=== PATIENT | female | born 2000 | race Caucasian/White ===

== ENCOUNTER 2020-12-17 04:30 | Inpatient (IN) ==
[2020-12-17] MEDS ORDERED: Lidocaine 1% 20 ML MDV ONE (04:42)
[2020-12-17] MEDS ORDERED: *HR* HYDROmorphone (PF) 1 MG/ML SYRINGE IVP ONE (04:52)
[2020-12-17] MEDS ORDERED: *HR* HYDROmorphone (PF) 1 MG/ML SYRINGE ONE (04:56)
[2020-12-17] MEDS ORDERED: Ondansetron 4 MG/2 ML VIAL IVP PRN (07:06)
[2020-12-17] MEDS ORDERED: Metoclopramide 10 MG/2 ML VIAL IVP PRN (07:06)
[2020-12-17] MEDS ORDERED: Naloxone 0.4 MG/ML INJ IVP PRN (07:06)
[2020-12-17] MEDS ORDERED: Lidocaine 1% 20 ML MDV INFILT PRN (07:06)
[2020-12-17] MEDS ORDERED: Famotidine 20 MG/2 ML VIAL IVP PRN (07:06)
[2020-12-17] MEDS ORDERED: Oxytocin 20 units/ LR 1000 mL 20 UNIT/1,000 ML BAG IVC SCH (07:07)
[2020-12-17] MEDS ORDERED: Measles/Mumps/Rubella Vacc 0.5 ML VIAL SQ PRN (07:07)
[2020-12-17] MEDS ORDERED: Benzocaine/Menthol 56 GM AEROSOL SPRAY TP PRN (07:07)
[2020-12-17] MEDS ORDERED: Sennosides 8.6 MG TABLET PO PRN (07:07)
[2020-12-17] MEDS ORDERED: Ringers Solution, Lactated 1,000 ML IVC SCH (07:15)
[2020-12-17 07:30] LABS: Basophils % 0.2 %; Eosinophils % 0.1 %; Hemoglobin 11.7 g/dL (11.5-15.4); Immature Granulocytes % 0.9 % (0-4); Lymphocytes # 1.7 K/mcL (0.6-4.6); Lymphocytes % 8.7 %; Mean Corpuscular HGB Conc 33.4 g/dL (31.6-35.5); Mean Corpuscular Hemoglobin 32.3 pg (28.0-33.3); Mean Corpuscular Volume 96.7 fL (83.0-100.0); Mean Platelet Volume 10.6 fL (9.4-12.4); Monocytes % 5.3 %; Neutrophils # 16.5 K/mcL (1.6-8.9); Platelet Count 437 K/mcL (140-400); Red Blood Count 3.62 M/mcL (3.82-4.97); Red Cell Distribution Width 12.1 % (11.5-14.5); Segmented Neutrophils % 84.8 %; White Blood Count 19.5 K/mcL (4.3-11.1)
[2020-12-17] MEDS: Prenatal Vit/FA 1 EACH TABLET PO SCH (08:24)
[2020-12-17] MEDS: Ibuprofen 600 MG TABLET PO PRN ×2 (08:24→23:00)
[2020-12-17] MEDS: Acetaminophen 325 MG TABLET PO PRN ×2 (08:24→23:00)
[2020-12-17 09:52] LABS: Amphetamine Screen,Urine Negative ng/mL (Cutoff=1000); Barbiturate Screen,Urine Negative ng/mL (Cutoff=200); Benzodiazepines Screen,Urine Negative ng/mL (Cutoff=200); Cannabinoid Screen,Urine Positive ng/mL (Cutoff = 50); Cocaine Screen,Urine Negative ng/mL (Cutoff= 300); Opiate Screen,Urine Negative ng/mL (Cutoff=300); Phencyclidine Screen,Urine Negative ng/mL (Cutoff=25)
[2020-12-18 05:42] LABS: Basophils # 0.1 K/mcL (0.0-0.2); Basophils % 0.3 %; Eosinophils # 0.1 K/mcL (0.0-0.6); Eosinophils % 0.6 %; Hematocrit 35.3 % (35.3-44.9); Immature Granulocytes % 0.7 % (0-4); Lymphocytes # 2.6 K/mcL (0.6-4.6); Lymphocytes % 14.2 %; Mean Corpuscular Hemoglobin 33.1 pg (28.0-33.3); Mean Corpuscular Volume 97.2 fL (83.0-100.0); Mean Platelet Volume 9.8 fL (9.4-12.4); Monocytes # 1.3 K/mcL (0.0-1.3); Monocytes % 7.1 %; Neutrophils # 14.2 K/mcL (1.6-8.9); Platelet Count 469 K/mcL (140-400); Red Blood Count 3.63 M/mcL (3.82-4.97); Red Cell Distribution Width 12.2 % (11.5-14.5); Segmented Neutrophils % 77.1 %; White Blood Count 18.4 K/mcL (4.3-11.1)
[2020-12-18] MEDS: Prenatal Vit/FA 1 EACH TABLET PO SCH (09:04)
[2020-12-18] MEDS: Ibuprofen 600 MG TABLET PO PRN (09:04)
[2020-12-18 15:46] VITALS: BP 123/71
== END 2020-12-18 17:05 | disposition home or self-care (01) | DRG 806 ==
LOC: 1NENULAB 04:30 → 1NENUOBS 08:08
PROVIDERS: ADMIT Obstetrics & Gynecology; ATTEND Obstetrics & Gynecology